=== PATIENT | female | born 1950 | race Caucasian/White ===

== ENCOUNTER 2017-12-09 15:17 | Emergency (ER) | payer MEDICARE ==
[~2017-12-09] VITALS: Ht 170.2 cm; Wt 81.2 kg
[2017-12-09] MEDS ORDERED: DICYCLOMINE 20 MG TABLET PO ONE (16:00)
[2017-12-09] MEDS ORDERED: SODIUM CHLORIDE FLUSH 10ML SYR IVF ONE (16:00)
[2017-12-09] MEDS ORDERED: SODIUM CHLORIDE 0.9% 1,000ML IVBOLUS ONE (16:00)
[2017-12-09] MEDS ORDERED: DICYCLOMINE 10 MG CAPSULE ONE (16:00)
[2017-12-09 16:10] LABS: BASOPHILS # (AUTO) 0.01 x10^3/uL (0-0.1); BASOPHILS % (AUTO) 0 % (0-1); EOSINOPHILS # (AUTO) 0.06 x10^3/uL (0-0.4); EOSINOPHILS % (AUTO) 1 % (1-7); LYMPHOCYTES # (AUTO) 1.06 x10^3/uL (1-3.4); LYMPHOCYTES % (AUTO) 23 % (22-44); MD NO; MEAN CORPUSCULAR HEMOGLOBIN 31.5 pg (27.0-34.8); MEAN CORPUSCULAR HGB CONC 33.9 g/dL (32.4-35.8); MEAN PLATELET VOLUME 8.5 fL (7.4-10.4); MONOCYTES % (AUTO) 9 % (2-9); NEUTROPHILS # (AUTO) 3.03 x10^3/uL (1.8-6.8); NEUTROPHILS % (AUTO) 66 % (42-75); PLATELET COUNT 213 x10^3/uL (130-400); RED BLOOD COUNT 4.06 x10^6/uL (3.82-5.3); RED CELL DISTRIBUTION WIDTH 13.7 % (9.6-15.2)
[2017-12-09 16:14] LABS: ANION GAP 5 mmol/L (5-15); CHLORIDE 109 mmol/L (98-107); CREATININE 0.84 mg/dL (0.55-1.02)
[2017-12-09 16:15] LABS: ALANINE AMINOTRANSFERASE 21 U/L (12-78); ALBUMIN 3.1 g/dL (3.4-5.0)
[2017-12-09 16:17] LABS: ALKALINE PHOSPHATASE 87 U/L (45-117); BILIRUBIN,TOTAL 0.3 mg/dL (0.2-1.0); TOTAL PROTEIN 6.6 g/dL (6.4-8.2)
[2017-12-09 16:33] LABS: MICROSCOPIC NOT IND
[2017-12-09 16:39] LABS: CULTURE INDICATED? NO
[2017-12-09] MEDS ORDERED: OMNIPAQUE 350 MG/ML, 100ML BOTTLE ONE (17:16)
[2017-12-09 17:27] LABS: CLOSTRIDIUM DIFFICILE ANTIGEN NEGATIVE; CLOSTRIDIUM DIFFICILE TOXIN NEGATIVE (Negative)
[2017-12-09 18:22] VITALS: BP 129/63
[2017-12-09 18:22] LABS: CRYPTOSPORIDIUM ANTIGEN Negative (Negative)
== END 2017-12-09 18:24 | disposition home or self-care (01) ==
LOC: ED 17:13
DX: A09 Infectious gastroenteritis and colitis, unspecified (principal); E78.00 Pure hypercholesterolemia, unspecified
CPT/HCPCS: 36415; 74177; 80053; 81003; 83690; 85025; 87046; 87077; 87252; 87324; 87328; 87329; 87427; 89055; 96360; 96361; 99285; J7030; Q9967